=== PATIENT | female | born 1940 | race Caucasian/White ===

== ENCOUNTER 2017-01-27 06:52 | Day surgery (SDC) | payer MEDICARE, OTHER ==
[~2017-01-27] VITALS: Ht 162.6 cm; Wt 74.2 kg
--- NOTE | 2017-02-01 06:22 | OR ---
ADMIT: 01/27/2017 RM/LOC: [facility] MR#: [id number] [place], [place] [id number] [address] [place] [address] Operative/Delivery Room Report SEX: F AGE: 76 : 1940 SURGERY DATE: 01/27/2017 SURGEON: Nadeem Whitten MD PROCEDURE: Total colonoscopy. PREOPERATIVE DIAGNOSIS: Rectal bleeding. POSTOPERATIVE DIAGNOSIS: Internal hemorrhoids with perianal irritation. DESCRIPTION OF PROCEDURE: The patient was brought to the procedure room, placed in left lateral decubitus position. Informed consent had been obtained preoperatively. The risks and benefits including, but not limited to, perforation, sedation, bleeding were discussed with the patient and agreed upon. All questions were answered, alternatives discussed and the patient agreed. TIVA was provided by the [employer] with propofol. Anal inspection revealed some hemorrhoidal tags. Digital examination revealed no abnormalities or obstructing masses. The Olympus videoendoscope, model CFH- 180AL was inserted through the rectum advanced to cecum without difficulty. The appendiceal orifice and ileocecal valve were identified. The valve was cannulated. The terminal ileum appeared normal for approximately 15 cm. The scope was slowly withdrawn through a normal cecum, ascending, transverse, descending, and sigmoid colon. The rectum likewise was normal. On retroflexion of the scope, there was some perianal irritation with some internal hemorrhoids present. No other abnormalities were identified. If the patient has any postoperative problems, she will contact me. She will follow up with Dr. Mejía as needed. Nadeem Whitten MD/ zak JOB #: [id number] CC: Nadeem Whitten, Attending Physician Kerry Mejía, Family Physician
== END 2017-01-27 09:40 | disposition home or self-care (01) ==
LOC: SSS 06:52
PROC: 0DJD8ZZ Inspection of Lower Intestinal Tract, Via Natural or Artificial Opening Endoscopic (ICD-10-PCS; principal; 2017-01-27)
DX: K64.8 Other hemorrhoids (principal); I10 Essential (primary) hypertension; Z98.49 Cataract extraction status, unspecified eye; Z79.899 Other long term (current) drug therapy; Z90.710 Acquired absence of both cervix and uterus